=== PATIENT | female | born 1980 | race Caucasian/White ===

== ENCOUNTER 2017-03-29 19:35 | Emergency (ER) | payer MEDICAID ==
[~2017-03-29] VITALS: Ht 160 cm; Wt 100.0 kg
[~2017-03-29 19:35] MED LIST: AMOXICILLIN 50500 MG PO; BIRTH CONTROL PILL PO; BIRTHCONTROL; BUPROBAN150 MG PO; CALCIUM CARBONATE; CALCIUM CARBONATE PO; DOXYCYCLINE 10100 MG PO; LORTAB 7.5/5001 TAB PO; MOTRIN 800800 MG/TAB PO; NORCO 325 MG-51 TAB PO; PERCOCET 325 MG1 TA2 PO; PHENERGAN 25 TA25 MG PO; PREDNISONE20 MG PO; PRENATAL VITAMI1 TA5 PO; PRENATAL1 TA1 PO; SENOKOT S 50 MG1 TAB PO; TYLENOL 325MG325 MG PO; TYLENOL 500MG500 MG PO; ZANTAC 300300 MG PO
[2017-03-29 19:37] VITALS: TEMP 98.5
[2017-03-29] MEDS ORDERED: AMBIEN 10MG10 MG PO (19:41)
[2017-03-29] MEDS ORDERED: PROZAC40 MG PO (19:41)
[2017-03-29 20:46] LABS: BASO % 0.5 % (0.0-2.0); EOS # 0.2 (0.0-0.7); EOS % 2.3 % (0-4.0); GRAN # 4.7 (1.4-6.5); GRAN % 57.6 % (42.2-75.2); HEMATOCRIT 41.5 % (37.0-47.0); HEMOGLOBIN 13.8 g/dl (12.5-16.0); LYMPH # 2.8 (1.2-3.4); LYMPH % 34.2 % (20.0-51.0); MEAN CELL VOLUME 90 fl (80.0-100.0); MEAN CORPUSCULAR HEMOGLOBIN 30 pg (27.0-31.0); MEAN CORPUSCULAR HGB CONC 33 g/dl (33.0-37.0); MEAN PLATELET VOLUME 9.8 fl (7.4-10.4); MONO # 0.4 (0.1-0.6); PLATELET COUNT 197 K/mm3 (130-400); RED BLOOD COUNT 4.59 M/mm3 (4.10-5.30); WHITE BLOOD COUNT 8.1 K/mm3 (4.8-10.8)
[2017-03-29 20:58] LABS: ADJUSTED CALCIUM 9.3 mg/dL (8.4-10.2); BILIRUBIN,TOTAL 0.3 mg/dL (0.0-1.0); CALCIUM 9.3 mg/dL (8.4-10.2); CREATININE, serum 0.88 mg/dL (0.52-1.25); POTASSIUM 4.5 mmol/L (3.4-5.0); TOTAL PROTEIN 7.1 gm/dL (6.4-8.2)
[2017-03-29] MEDS ORDERED: AMOXICILLIN 8751 TAB PO (21:47)
[2017-03-29 21:49] VITALS: BP 120/81; PULSE 74
== END 2017-03-29 21:56 | disposition home or self-care (01) ==
LOC: COL.ER 19:35
PROVIDERS: Nurse Practitioner
DX: J01.90 Acute sinusitis, unspecified (principal); R10.13 Epigastric pain; F32.9 Major depressive disorder, single episode, unspecified; Z90.49 Acquired absence of other specified parts of digestive tract; Z98.890 Other specified postprocedural states

== ENCOUNTER 2017-07-04 17:03 | Emergency (ER) | payer MEDICAID ==
[~2017-07-04] VITALS: Ht 160 cm; Wt 105.0 kg
[~2017-07-04 17:03] MED LIST changes: +AMBIEN 10MG10 MG PO; +AMOXICILLIN 8751 TAB PO; +PROZAC40 MG PO
[2017-07-04 17:08] VITALS: BP 130/81; TEMP 99.1
[2017-07-04] MEDS ORDERED: PREDNISONE20 MG PO (17:11)
[2017-07-04] MEDS ORDERED: VYVANSE60 MG PO (17:11)
[2017-07-04] MEDS ORDERED: PROZAC 20MG20 MG PO (17:11)
[2017-07-04] MEDS ORDERED: AMOXICILLIN 8751 TAB PO (17:12)
[2017-07-04 17:55] LABS: BASO % 0.1 % (0.0-2.0); GRAN # 7.5 (1.4-6.5); GRAN % 82.8 % (42.2-75.2); HEMATOCRIT 38.9 % (37.0-47.0); HEMOGLOBIN 13.4 g/dl (12.5-16.0); LYMPH # 1.4 (1.2-3.4); LYMPH % 15.6 % (20.0-51.0); MEAN CELL VOLUME 89 fl (80.0-100.0); MEAN CORPUSCULAR HEMOGLOBIN 31 pg (27.0-31.0); MEAN CORPUSCULAR HGB CONC 34 g/dl (33.0-37.0); MEAN PLATELET VOLUME 10.6 fl (7.4-10.4); MONO # 0.1 (0.1-0.6); MONO % 0.9 % (1.7-9.3); PLATELET COUNT 215 K/mm3 (130-400); RED BLOOD COUNT 4.37 M/mm3 (4.10-5.30); REDCELL DISTRIBUTION WIDTH-CV 12.6 % (11.5-14.5)
[2017-07-04 18:04] LABS: ALANINE AMINOTRANSFERASE 50 U/L (9-52); ALBUMIN 4.5 gm/dL (3.5-5.0); ALKALINE PHOSPHATASE 74 U/L (50-136); ANION GAP 8 mmol/L (7-16); AST,SGOT 31 U/L (15-37); BILIRUBIN,TOTAL 0.4 mg/dL (0.0-1.0); BLOOD UREA NITROGEN 17 mg/dL (7-17); C-REACTIVE PROTEIN < 0.5 mg/dL (0.0-0.9); CALCIUM 9.6 mg/dL (8.4-10.2); CARBON DIOXIDE 26 mmol/L (22-30); CHLORIDE 101 mmol/L (98-107); CREATININE, serum 0.86 mg/dL (0.52-1.25); GLUCOSE 107 mg/dL (74-106); POTASSIUM 4.3 mmol/L (3.4-5.0); SODIUM 135 mmol/L (137-145); TOTAL PROTEIN 7.6 gm/dL (6.4-8.2)
[2017-07-04 18:48] LABS: ERYTHROCYTE SEDIMENTATION RATE 2 mm/hr (0-20)
[2017-07-04 19:05] VITALS: PULSE 68
== END 2017-07-04 19:05 | disposition home or self-care (01) ==
LOC: COL.ER 17:03
PROVIDERS: Emergency Medicine
DX: R20.2 Paresthesia of skin (principal)

== ENCOUNTER 2017-10-12 20:00 | Emergency (ER) | payer MEDICAID ==
[~2017-10-12] VITALS: Ht 162.6 cm; Wt 100.0 kg
[~2017-10-12 20:00] MED LIST changes: +PROZAC 20MG20 MG PO; +VYVANSE60 MG PO
[2017-10-12 20:17] VITALS: BP 144/83; TEMP 99
[2017-10-12] MEDS ORDERED: PRILOSEC 20MG20 MG PO (20:20)
[2017-10-12] MEDS ORDERED: PROZAC60 MG (20:20)
[2017-10-12 22:01] VITALS: PULSE 92
== END 2017-10-12 22:02 | disposition home or self-care (01) ==
LOC: COL.ER 20:00
DX: R51 Headache (principal); F32.9 Major depressive disorder, single episode, unspecified; F41.9 Anxiety disorder, unspecified; K21.9 Gastro-esophageal reflux disease without esophagitis; Z90.49 Acquired absence of other specified parts of digestive tract; Z90.89 Acquired absence of other organs; Z98.51 Tubal ligation status; Z98.890 Other specified postprocedural states
CPT/HCPCS: J1885

== ENCOUNTER → 2018-08-04 | Outpatient (CLI) | payer MEDICAID ==
[~2018-08-04] MED LIST changes: +ADIPEX-P37.5 MG PO; +INDERAL 20MG20 MG PO; +PRIL40 PO; +REXULTI3 MG PO; +WELLBUTRIN XL150 MG PO
== END ==
LOC: LIGHT 07-27 13:13
DX: F32.9 Major depressive disorder, single episode, unspecified (principal); F50.81 Binge eating disorder; E66.9 Obesity, unspecified; Z68.41 Body mass index [BMI] 40.0-44.9, adult; Z71.3 Dietary counseling and surveillance

== ENCOUNTER → 2018-08-27 | Outpatient (CLI) | payer MEDICAID ==
[~2018-08-27] VITALS: Ht 161.3 cm; Wt 112.0 kg
[2018-08-27 15:13] VITALS: BP 122/70; PULSE 88
== END ==
LOC: LIGHT 15:03
DX: F50.81 Binge eating disorder (principal); E66.01 Morbid (severe) obesity due to excess calories; F32.9 Major depressive disorder, single episode, unspecified; Z68.41 Body mass index [BMI] 40.0-44.9, adult; Z71.3 Dietary counseling and surveillance
CPT/HCPCS: G0463

== ENCOUNTER → 2018-09-24 | Outpatient (CLI) | payer MEDICAID ==
[~2018-09-24] VITALS: Ht 161.3 cm; Wt 112.0 kg
[~2018-09-24] MED LIST changes: +GLUCOPHAGE500 MG/TAB PO
[2018-09-24 14:48] VITALS: BP 130/90; PULSE 76
== END ==
LOC: LIGHT 13:41
DX: F32.9 Major depressive disorder, single episode, unspecified (principal); F50.81 Binge eating disorder; E66.01 Morbid (severe) obesity due to excess calories; Z68.41 Body mass index [BMI] 40.0-44.9, adult; Z71.3 Dietary counseling and surveillance
CPT/HCPCS: G0463

== ENCOUNTER → 2018-10-06 | Outpatient (CLI) | payer MEDICAID | LOC: LIGHT 15:04 | DX: F32.9 Major depressive disorder, single episode, unspecified (principal); F50.81 Binge eating disorder; E66.01 Morbid (severe) obesity due to excess calories; Z68.41 Body mass index [BMI] 40.0-44.9, adult; Z71.3 Dietary counseling and surveillance ==

== ENCOUNTER → 2018-10-29 | Outpatient (CLI) | payer MEDICAID ==
[~2018-10-29] VITALS: Ht 161.3 cm; Wt 110.9 kg
[~2018-10-29] MED LIST changes: +CLARITIN 1010 MG/TAB PO
[2018-10-29 15:35] VITALS: BP 132/90; PULSE 72
== END ==
LOC: LIGHT 15:10
DX: F32.9 Major depressive disorder, single episode, unspecified (principal); K29.70 Gastritis, unspecified, without bleeding; F50.81 Binge eating disorder; E66.01 Morbid (severe) obesity due to excess calories; Z68.41 Body mass index [BMI] 40.0-44.9, adult; Z71.3 Dietary counseling and surveillance
CPT/HCPCS: G0463

== ENCOUNTER 2018-11-26 17:01 | Emergency (ER) | payer MEDICAID ==
[~2018-11-26] VITALS: Ht 160 cm; Wt 110.9 kg
[2018-11-26 17:33] VITALS: TEMP 98
[2018-11-26 19:34] LABS: BASO # 0.1 (0.0-0.2); BASO % 0.5 % (0.0-2.0); EOS # 0.1 (0.0-0.7); EOS % 1.3 % (0-4.0); GRAN # 5.7 (1.4-6.5); GRAN % 61.8 % (42.2-75.2); LYMPH # 2.8 (1.2-3.4); LYMPH % 30.2 % (20.0-51.0); MEAN CELL VOLUME 89 fl (80.0-100.0); MEAN CORPUSCULAR HEMOGLOBIN 30 pg (27.0-31.0); MEAN CORPUSCULAR HGB CONC 33 g/dl (33.0-37.0); MEAN PLATELET VOLUME 10.9 fl (7.4-10.4); MONO # 0.5 (0.1-0.6); MONO % 5.9 % (1.7-9.3); PLATELET COUNT 239 K/mm3 (130-400); REDCELL DISTRIBUTION WIDTH-CV 12.8 % (11.5-14.5)
[2018-11-26 19:47] LABS: COLLECTION METHOD CLEAN CATCH
[2018-11-26 19:54] LABS: ALBUMIN 3.9 gm/dL (3.5-5.0); BILIRUBIN,TOTAL 0.2 mg/dL (0.0-1.0); C-REACTIVE PROTEIN 0.9 mg/dL (0.0-0.9); CALCIUM 9.5 mg/dL (8.4-10.2); CREATININE, serum 0.76 (0.52-1.25); POTASSIUM 3.9 mmol/L (3.4-5.0); TOTAL PROTEIN 7.2 gm/dL (6.4-8.2)
[2018-11-26 20:15] LABS: AMORPHOUS CRYSTAL Present /uL; PH 7 (5-8); URINE APPEARANCE Turbid; URINE BACTERIA None Seen /hpf; URINE BILIRUBIN Negative (NEGATIVE); URINE BLOOD Negative (NEGATIVE); URINE COLOR Yellow; URINE GLUCOSE Negative (NEGATIVE); URINE KETONE Negative (NEGATIVE); URINE LEUKOCYTE ESTERASE Negative (NEGATIVE); URINE NITRATE Negative (NEGATIVE); URINE PROTEIN(semi-quant) Negative (NEGATIVE); URINE RBC None Seen /hpf; URINE UROBILINOGEN Negative (NEGATIVE)
[2018-11-26 20:33] VITALS: BP 138/87; PULSE 86
== END 2018-11-26 20:34 | disposition home or self-care (01) ==
LOC: COL.ER 17:01
PROVIDERS: Physician Assistant
DX: R51 Headache (principal); Z90.49 Acquired absence of other specified parts of digestive tract; Z98.51 Tubal ligation status; Z79.84 Long term (current) use of oral hypoglycemic drugs
CPT/HCPCS: J1200; J1885; J2550

== ENCOUNTER → 2018-12-03 | Outpatient (CLI) | payer MEDICAID ==
[~2018-12-03] VITALS: Ht 160 cm; Wt 110.4 kg
[2018-12-03 13:46] VITALS: BP 130/62; PULSE 88
== END ==
LOC: LIGHT
DX: F32.9 Major depressive disorder, single episode, unspecified (principal); F50.81 Binge eating disorder; E66.01 Morbid (severe) obesity due to excess calories; Z68.41 Body mass index [BMI] 40.0-44.9, adult; Z71.3 Dietary counseling and surveillance
CPT/HCPCS: G0463

== ENCOUNTER 2018-12-12 23:57 | Emergency (ER) | payer MEDICAID ==
[~2018-12-12] VITALS: Ht 160 cm; Wt 110.9 kg
[2018-12-13 00:10] VITALS: TEMP 97.7
[2018-12-13 02:30] VITALS: BP 121/79; PULSE 74
== END 2018-12-13 02:30 | disposition home or self-care (01) ==
LOC: COL.ER 23:57
DX: R51 Headache (principal); Z90.49 Acquired absence of other specified parts of digestive tract; Z98.51 Tubal ligation status; Z79.84 Long term (current) use of oral hypoglycemic drugs
CPT/HCPCS: J1885

== ENCOUNTER 2018-12-31 13:31 | Emergency (ER) | payer MEDICAID ==
[~2018-12-31] VITALS: Ht 160 cm; Wt 109.5 kg
[2018-12-31 13:34] VITALS: TEMP 97.7
[2018-12-31 14:04] LABS: BASO % 0.3 % (0.0-2.0); EOS # 0.2 (0.0-0.7); EOS % 1.5 % (0-4.0); GRAN # 6.4 (1.4-6.5); GRAN % 63.7 % (42.2-75.2); HEMATOCRIT 38.6 % (37.0-47.0); LYMPH # 2.8 (1.2-3.4); LYMPH % 27.9 % (20.0-51.0); MEAN CELL VOLUME 88 fl (80.0-100.0); MEAN CORPUSCULAR HEMOGLOBIN 30 pg (27.0-31.0); MEAN CORPUSCULAR HGB CONC 34 g/dl (33.0-37.0); MEAN PLATELET VOLUME 10.7 fl (7.4-10.4); MONO # 0.6 (0.1-0.6); MONO % 6.2 % (1.7-9.3); PLATELET COUNT 218 K/mm3 (130-400); RED BLOOD COUNT 4.37 M/mm3 (4.10-5.30); REDCELL DISTRIBUTION WIDTH-CV 13.1 % (11.5-14.5)
[2018-12-31 14:19] LABS: COLLECTION METHOD CLEAN CATCH
[2018-12-31 14:26] LABS: ALANINE AMINOTRANSFERASE 30 U/L (9-52); ALKALINE PHOSPHATASE 91 U/L (50-136); ANION GAP 8 mmol/L (7-16); AST,SGOT 36 U/L (15-37); BILIRUBIN,TOTAL 0.4 mg/dL (0.0-1.0); BLOOD UREA NITROGEN 14 mg/dL (7-17); C-REACTIVE PROTEIN 1.3 mg/dL (0.0-0.9); CARBON DIOXIDE 26 mmol/L (22-30); CHLORIDE 105 mmol/L (98-107); CREATININE, serum 0.84 (0.52-1.25); GLUCOSE 83 mg/dL (74-106); POTASSIUM 3.9 mmol/L (3.4-5.0); SODIUM 139 mmol/L (137-145); TOTAL PROTEIN 7.2 gm/dL (6.4-8.2)
[2018-12-31 14:26] LABS: MUCOUS Present /lpf; PH 5 (5-8); URINE APPEARANCE Clear; URINE BACTERIA Rare /hpf; URINE BILIRUBIN Negative (NEGATIVE); URINE BLOOD Negative (NEGATIVE); URINE COLOR Yellow; URINE GLUCOSE Negative (NEGATIVE); URINE KETONE Negative (NEGATIVE); URINE LEUKOCYTE ESTERASE Negative (NEGATIVE); URINE NITRATE Negative (NEGATIVE); URINE PROTEIN(semi-quant) Negative (NEGATIVE); URINE RBC 0-2 /hpf; URINE UROBILINOGEN Negative (NEGATIVE)
[2018-12-31 14:43] LABS: TROPONIN-I < 0.012 ng/mL (0.000-0.035)
[2018-12-31] MEDS ORDERED: LIDODERM 5% PATC1 EA TP (15:11)
[2018-12-31 15:17] VITALS: BP 121/84; PULSE 97
== END 2018-12-31 15:18 | disposition home or self-care (01) ==
LOC: COL.ER 13:31
PROVIDERS: Physician Assistant
DX: R10.9 Unspecified abdominal pain (principal); R07.9 Chest pain, unspecified; F32.9 Major depressive disorder, single episode, unspecified; Z88.1 Allergy status to other antibiotic agents; Z90.49 Acquired absence of other specified parts of digestive tract; Z90.89 Acquired absence of other organs; Z98.890 Other specified postprocedural states

== ENCOUNTER 2019-02-18 10:25 | Inpatient (IN) | payer MEDICAID ==
[~2019-02-18] VITALS: Ht 161.3 cm; Wt 107.8 kg
[~2019-02-18 10:25] MED LIST changes: +LIDODERM 5% PATC1 EA TP
[2019-03-10] VITALS (14 sets, daily range): BP systolic 117–152; BP diastolic 61–88; PULSE 55–97; TEMP 97.8–98.7
--- NOTE | 2019-03-10 06:28 | NUR ---
The patient ambulated back to [facility] independently using a steady gait and appeared to tolerate the activity well. The patient appears alert and oriented at this time. Vital signs obtained. Consent signed. 18G IV started in left hand with one stick, LR infusing without difficulty. Heart Reg. Lungs clear. Bowel sounds audible. Family was brought back to be at her bedside. Call light is within reach. Will continue to monitor the patient.
--- NOTE | 2019-03-10 09:45 | NUR ---
Patient brought to floor via bed from surgery. Patient sleeping in bed, arouses when name called but goes back to sleep. Four lap sites on abd with bandaids clean, dry, and intact. Andrey drain with scant amount of serosanguinous fluid. Respirations clifford and unlabored. No signs or symptoms of distress.
--- NOTE | 2019-03-10 10:00 | NUR ---
Patient requests to ambulate to restroom to urinate. Assisted to bathroom with assist of two. Patient gait unsteady and patient drowsy. Sits on toilet and urinates without difficulty. Complains of nausea but does not vomit or dry heave. Returns to bed. Drain leaking small amount of serosanguinous fluid. Reinforced site with medipore tape. Patient lies back in bed. SCDs applied. Patient voices no further concerns or needs at this time.
--- NOTE | 2019-03-10 11:32 | NUR ---
Ambulates to restroom with assist of 1. Continues to have nausea and rating pain 10/10 and describes the pain as "hurts". Assisted back into bed. Side rails up and call light in reach.
--- NOTE | 2019-03-10 11:42 | NUR ---
Went in room to administer Dilaudid pulled from the [facility]. Patient sharmin in bed with eyes closed sleeping. No facial grimacing or signs of pain noted. Will hold on giving the Dilaudid at this time.
--- NOTE | 2019-03-10 12:17 | NUR ---
Patient awakens and says that she would like some medication for pain. Rating pain 10/10 in abdomen. Administered Dilaudid 0.25mg IV. Discussed with the patient that ambulating will also help with the pain in moving the gas that she could be experiencing as well. Instructed the patient to sip on blue Gatorade at bedside as she will be going to radiology at 1300 for her swallow study test. Patient drowsy by end of conversation. Call light in reach and side rails up. Bedside table moved in patient reach.
--- NOTE | 2019-03-10 14:42 | NUR ---
Rates pain in abdomen /, requests pain. Patient says that she knows she has to stand for her xray but she cannot take the pain any longer and would like to get pain medication. Administered Dilaudid 0.25mg IV. Patient lying in bed with side rails up and call light in reach. Family in room.
--- NOTE | 2019-03-10 15:04 | NUR ---
Radiology here to take patient for barium study. IV fluids disconnected. Patient taken via wheelchair to radiology by radiology staff.
--- NOTE | 2019-03-10 15:34 | NUR ---
Returns from radiology. IV fluids reconnected. Asked patient if she would like to walk in the halls and the patient says that she does not want to because she is having pain. Assisted into comfortable position in the bed. Side rails up, call light in reach. Patient denies further needs.
--- NOTE | 2019-03-10 17:21 | NUR ---
Rating pain 10/10. Requests pain medication. Return with Dilaudid. Patient resting with eyes closed, respirations even and unlabored. Administered Dilaudid 0.25mg IV. Patient continues to close eyes and rest. Denies further needs at this time. Side rails up and call light in reach. Patient educated again at this time the importance of ambulating.
--- NOTE | 2019-03-10 18:04 | NUR ---
Rates pain 5/10 in abd. Dressing clean, dry, and intact. Drain in place draining scant amount of bloody discharge. Patient ambulates to nurses station and back to room. Gait steady. Reports that she could feel the gas in herupper chest area. Upon return to room, urinates without difficulty in toilet. Requests to brush teeth at this time. Returns to bed.
--- NOTE | 2019-03-10 23:20 | NUR ---
PATIENT ASSESSMENT COMPLETED. PATIENT IS HERE WITH DX OF GASTRIC SLEEVE. PATIENT IS ALERT AND ORIENTED AND VSS. PATIENT DOES C/O GAS PAIN IN UPPER ABDOMEN ALONG WITH SOME NAUSEA. PRN DILAUDID GIVEN TO PATIENT. PATIENT HAS 4 BANDAIDS TO SITES ALL CLEAN DRY AND INTACT. PATIENT DOES HAVE RAFAEL DRAIN WITH MINIMAL BLOODY DRAINAGE. PATIENT IS VOIDING WITH NO ISSUES. HAS LEFT HAND IV WITH D5 NS AT 100/HR. PATIENT CURRENTLY RESTING IN BED. CALL LIGHT WITHIN REACH, WILL CONTINUE TO MONITOR
--- NOTE | 2019-03-11 02:14 | NUR ---
patient complaining of abdominal pain, rates it 10/10. asked patient if she would like to walk as it would help with her bloating/gas. patient refused. prn dilaudid given. call light within reach, will continue to monitor
[2019-03-11 03:00] VITALS: BP 131/60; PULSE 71; TEMP 99.1
--- NOTE | 2019-03-11 03:48 | NUR ---
Patient still c/o abdominal gas pain. patient did get up and ambulate in hallway. patient took prn tylenol crushed in apple juice. tolerated well.
--- NOTE | 2019-03-11 06:43 | NUR ---
patient lew drain dressing saturated, patient tugged on drain. dressing replaced.
[2019-03-11 08:02] VITALS: BP 126/62; PULSE 64; TEMP 98.4
--- NOTE | 2019-03-11 10:29 | NUR ---
TORO met with the patient and her to discuss a discharge plan. The patient lives in [place] with her kids. The patient does not have DME and is independent with ADLs. The patient's PCP is Sidra Brenner APRN and receives medication from [facility] with no difficulties. The patient does not have advanced directives in the EMR but was interested in a DPOA-HC form. TORO provided the form. The patient plans to return home upon discharge with her providing transportation. There are no additional needs at this time.
--- NOTE | 2019-03-11 10:30 | NUR ---
PATIENT'S BOYFRIEND ARRIVED WITH SONIC IN HAND. HOUSE MOVER HELPER IN ROOM AT THE TIME AND EDUCATED PATIENT ABOUT HER DIET. PATIENT ALSO STILL REPORTING SOME NAUSEA FROM TIME TO TIME. PATIENT ASKED IF SHE COULD HAVE THE SONIC MILK SHAKE WITH WHAT APPEARED TO HAVE SOME TYPE OF CANDY IN IT. NURSING AGAIN, EDUCATED PATIENT AND BOYFRIEND REGUARDING HER CLEAR LIQUID DIET. PATIENT NOW DRINKING THE OCEAN WATER DRINK HE BROUGHT IN WHICH IS CARBONATED AND CONTAINS LOTS OF SUGAR. PATIENT SEEMS ANNOYED WITH NURSING STAFF AND EDUCATION.
--- NOTE | 2019-03-11 11:07 | NUR ---
Rating pain 10/10 in upper abd and describes the pain as sharp, crampy, and an ache. Administered Roxicodone 5mg PO per orders. Patient says that this same medication did not work for her earlier and inquires about Dilaudid. Explain to the patient that we need to transition her to a oral pain medication because if she discharges home today she will have only oral medication to control her pain at home. Patient says that when her provider comes in later she will discuss with him the pain medications options she will have when she goes home. Denies further needs at this time.
--- NOTE | 2019-03-11 12:05 | NUR ---
Lying in bed on left side with eyes closed. Opens eyes when spoken to. Asked how her pain was and the patient says that it is still there but has decreased. Patient drowsy. Asked patient if I could provide her with anything further and the patient declines.
[2019-03-11 12:14] VITALS: BP 150/90; PULSE 60; TEMP 99
--- NOTE | 2019-03-11 13:36 | NUR ---
patient alert and oriented x4. ambulating independently and up and down hallways. patient complaining of pain and receiving PRN medication. continues with clear diet. continent of bladder and bowel. drsg over ABD incision clean, dry, intact. BRIA drain with bulb suction. IV left hand no phelbitis or inlfammation noted. patient has no further complaints. call light within reach. this nurse reported off to JUAN DIEGO Stoll.
--- NOTE | 2019-03-11 13:43 | NUR ---
Patient and significant other ambulating in halls. Gait staedy. No acute signs of distress.
--- NOTE | 2019-03-11 14:20 | NUR ---
Sitting up in chair. Administered scheduled Tylenol 1000mg PO crushed up and mixed in apple juice. Patient tolerates with some difficulty. Denies further needs.
[2019-03-11 15:59] VITALS: BP 142/74; PULSE 57; TEMP 99
[2019-03-11] MEDS ORDERED: NORCO 325 MG-51 TAB PO (16:57)
[2019-03-11] MEDS ORDERED: ZOFRAN 4MG T4 MG/TAB PO (16:58)
--- NOTE | 2019-03-11 17:07 | NUR ---
Dr. Boyd in to see patient. Dr. Boyd removes BRIA drain, all intact. 4x4 applied to site and reinforced with tape. Patient asks for Zofran to help with some nausea and reflux type symptoms she is having. Administered Zofran 4mg IV. Fluids disconnected at this time. Site still remains.
--- NOTE | 2019-03-11 17:29 | NUR ---
Discharge instructions reviewed with patient. Questions answered. Patient verbalizes understanding to all and signs documents. Discharge packet provided to the patient. IV discontinued, catheter intact. Bandaid applied to site. Patient will call when her ride has come to pick her up.
--- NOTE | 2019-03-11 18:49 | NUR ---
Spouse arrives to take patient home. Patient escorted out via wheelchair to POV. Voiced no further concerns or needs.
[2019-04-12] MEDS ORDERED: MULTI VITAMINS1 TAB PO (16:09)
== END 2019-03-11 18:50 | disposition home or self-care (01) | DRG 621 ==
LOC: INPTSU 03-10 05:41 → SDCO 03-10 07:30 → EDSTATUS 03-10 07:30 → SURG 03-10 07:30
PROVIDERS: ADMIT Surgery
PROC: 0DB64Z3 Excision of Stomach, Percutaneous Endoscopic Approach, Vertical (ICD-10-PCS; principal; 2019-03-10 07:30)
DX: E66.01 Morbid (severe) obesity due to excess calories (principal); Z68.41 Body mass index [BMI] 40.0-44.9, adult
CPT/HCPCS: A9284; J0330; J1100; J1170; J1885; J2405; J2550; J2704; J2710; J3010; J7042; J7120

== ENCOUNTER → 2019-03-08 | Outpatient (CLI) | payer MEDICAID | LOC: LIGHT 10:38 | DX: Z01.818 Encounter for other preprocedural examination (principal); E66.01 Morbid (severe) obesity due to excess calories; Z68.41 Body mass index [BMI] 40.0-44.9, adult; Z71.3 Dietary counseling and surveillance ==

== ENCOUNTER → 2019-03-15 | Outpatient (CLI) | payer MEDICAID ==
[~2019-03-15] VITALS: Ht 161.3 cm; Wt 100.9 kg
[~2019-03-15] MED LIST changes: +ZOFRAN 4MG T4 MG/TAB PO
[2019-03-15 16:00] VITALS: BP 120/70; PULSE 60
== END ==
LOC: LIGHT
DX: F32.9 Major depressive disorder, single episode, unspecified (principal); Z98.84 Bariatric surgery status; Z68.38 Body mass index [BMI] 38.0-38.9, adult; E66.01 Morbid (severe) obesity due to excess calories; Z71.3 Dietary counseling and surveillance

== ENCOUNTER → 2019-04-12 | Outpatient (CLI) | payer MEDICAID ==
[~2019-04-12] VITALS: Ht 161.3 cm; Wt 95.3 kg
[~2019-04-12] MED LIST changes: +MULTI VITAMINS1 TAB PO
[2019-04-12 16:12] VITALS: BP 118/80; PULSE 84
== END ==
LOC: LIGHT 13:42
DX: F32.9 Major depressive disorder, single episode, unspecified (principal); Z98.84 Bariatric surgery status; E66.9 Obesity, unspecified; Z68.36 Body mass index [BMI] 36.0-36.9, adult; Z71.3 Dietary counseling and surveillance

== ENCOUNTER 2019-07-20 17:43 | Emergency (ER) | payer MEDICAID ==
[~2019-07-20] VITALS: Ht 162.6 cm; Wt 90.0 kg
[2019-07-20 17:47] VITALS: TEMP 97.5
[2019-07-20 18:38] LABS: COLLECTION METHOD CLEAN CATCH
[2019-07-20 18:44] LABS: BASO # 0.1 (0.0-0.2); BASO % 0.5 % (0.0-2.0); EOS # 0.1 (0.0-0.7); EOS % 1.1 % (0-4.0); GRAN % 67.1 % (42.2-75.2); HEMATOCRIT 44.9 % (37.0-47.0); HEMOGLOBIN 14.7 g/dl (12.5-16.0); LYMPH # 3.1 (1.2-3.4); LYMPH % 26.2 % (20.0-51.0); MEAN CELL VOLUME 91 fl (80.0-100.0); MEAN CORPUSCULAR HEMOGLOBIN 30 pg (27.0-31.0); MEAN CORPUSCULAR HGB CONC 33 g/dl (33.0-37.0); MEAN PLATELET VOLUME 10.7 fl (7.4-10.4); MONO # 0.6 (0.1-0.6); MONO % 4.8 % (1.7-9.3); PLATELET COUNT 232 K/mm3 (130-400); RED BLOOD COUNT 4.95 M/mm3 (4.10-5.30); REDCELL DISTRIBUTION WIDTH-CV 12.7 % (11.5-14.5)
[2019-07-20 18:56] LABS: MUCOUS Present /lpf; SQUAMOUS EPITHELIAL 0-2 /hpf; URINE BACTERIA None Seen /hpf; URINE RBC 0-2 /hpf
[2019-07-20 19:08] LABS: ALANINE AMINOTRANSFERASE 30 U/L (9-52); ALBUMIN 3.2 gm/dL (3.5-5.0); ALKALINE PHOSPHATASE 55 U/L (50-136); ANION GAP 4 mmol/L (7-16); AST,SGOT 24 U/L (15-37); BILIRUBIN,TOTAL 0.3 mg/dL (0.0-1.0); BLOOD UREA NITROGEN 16 mg/dL (7-17); CALCIUM 8.5 mg/dL (8.4-10.2); CARBON DIOXIDE 29 mmol/L (22-30); CHLORIDE 106 mmol/L (98-107); CREATININE, serum 0.83 (0.52-1.25); GLUCOSE 93 mg/dL (74-106); LIPASE 67 U/L (23-300); POTASSIUM 3.7 mmol/L (3.4-5.0); SODIUM 139 mmol/L (137-145); TOTAL PROTEIN 5.7 gm/dL (6.4-8.2)
[2019-07-20 19:09] LABS: C-REACTIVE PROTEIN < 0.5 mg/dL (0.0-0.9)
[2019-07-20 19:12] LABS: PH 5 (5-8); URINE APPEARANCE Hazy; URINE BILIRUBIN Negative (NEGATIVE); URINE BLOOD Negative (NEGATIVE); URINE COLOR Yellow; URINE GLUCOSE Negative (NEGATIVE); URINE KETONE Trace (NEGATIVE); URINE LEUKOCYTE ESTERASE Negative (NEGATIVE); URINE NITRATE Negative (NEGATIVE); URINE PROTEIN(semi-quant) Negative (NEGATIVE); URINE UROBILINOGEN Negative (NEGATIVE)
[2019-07-20] MEDS ORDERED: FLEXERIL 1010 MG/TAB PO (19:45)
[2019-07-20 20:00] VITALS: BP 126/82; PULSE 59
== END 2019-07-20 20:00 | disposition home or self-care (01) ==
LOC: COL.ER 17:43
PROVIDERS: Emergency Medicine
DX: M54.5 Low back pain (principal)
CPT/HCPCS: J1885

== ENCOUNTER 2019-08-01 11:06 | Emergency (ER) | payer MEDICAID ==
[~2019-08-01] VITALS: Ht 162.6 cm; Wt 90.9 kg
[~2019-08-01 11:06] MED LIST changes: +FLEXERIL 1010 MG/TAB PO
[2019-08-01 11:19] VITALS: BP 115/79; TEMP 98.8
[2019-08-01] MEDS ORDERED: TAMIFLU 75MG75 MG PO (14:42)
[2019-08-01 14:58] VITALS: PULSE 99
== END 2019-08-01 14:58 | disposition home or self-care (01) ==
LOC: COL.ER 11:06
DX: J11.1 Influenza due to unidentified influenza virus with other respiratory manifestations (principal); F17.210 Nicotine dependence, cigarettes, uncomplicated; Z88.1 Allergy status to other antibiotic agents

== ENCOUNTER → 2019-08-30 | Outpatient (CLI) | payer MEDICAID ==
[~2019-08-30] VITALS: Ht 161.3 cm; Wt 83.9 kg
[~2019-08-30] MED LIST changes: +TAMIFLU 75MG75 MG PO
[2019-08-30 16:35] VITALS: BP 110/80; PULSE 68
== END ==
LOC: LIGHT 11:10
DX: Z68.32 Body mass index [BMI] 32.0-32.9, adult (principal); Z98.84 Bariatric surgery status
CPT/HCPCS: G0463

== ENCOUNTER → 2020-03-13 | Outpatient (CLI) | payer MEDICAID ==
[~2020-03-13] VITALS: Ht 161.3 cm; Wt 79.6 kg
[~2020-03-13] MED LIST changes: +HAIRSKINNAILS PO
[2020-03-13 13:50] VITALS: BP 104/66; PULSE 64
== END ==
LOC: LIGHT 08:42
DX: E66.8 Other obesity (principal); Z68.30 Body mass index [BMI] 30.0-30.9, adult; Z98.84 Bariatric surgery status
CPT/HCPCS: G0463

== ENCOUNTER → 2022-01-02 | Outpatient (CLI) | payer MEDICAID | LOC: COL.RAD 15:53 | DX: M51.36 Other intervertebral disc degeneration, lumbar region (principal) ==

== ENCOUNTER 2022-02-06 16:15 | Outpatient (RCR) | payer MEDICAID | END 2022-02-13 | disposition home or self-care (01) | LOC: MKS.ESL.PT | DX: M54.50 Low back pain, unspecified (principal); G89.29 Other chronic pain ==